=== PATIENT | female | born 1950 | race Caucasian/White ===

== ENCOUNTER 2017-07-15 15:18 | Observation (INO) | payer MEDICARE ==
--- NOTE | 2017-07-15 16:27 | RAD ---
PELVIS ONE VIEW: 07/15/17 HISTORY: Pelvic pain. Left sided weakness. COMPARISON: None. FINDINGS: There are four partially threaded cannulated screws at the left femoral neck. No evidence for hardwar e complication. Obturator rings are intact. No acute fracture or malalignment is appreciated. Mild degenerative disease of the SI joints. IMPRESSION: No acute abnormality. POS: CAMELIA
[2017-07-15] MEDS ORDERED: hydrALAZINE 20 MG/ML VIAL ONE (18:27)
[2017-07-15] MEDS ORDERED: Cyclobenzaprine 10 MG TAB PO PRN (18:54)
[2017-07-15 20:47] VITALS: BMI 20.7
[2017-07-15] MEDS: Heparin 5,000 UNITS/ML VIAL SC SCH (20:52)
[2017-07-15] MEDS ORDERED: Atorvastatin Calcium 40 MG TAB PO SCH (21:00)
[2017-07-15] MEDS: Acetaminophen 500 MG TAB PO PRN (23:36)
[2017-07-15] MEDS: hydrALAZINE 20 MG/ML VIAL SLOW IVP PRN (23:37)
[2017-07-16] MEDS: hydrALAZINE 20 MG/ML VIAL SLOW IVP PRN ×3 (03:30→23:10)
[2017-07-16] MEDS ORDERED: Labetalol 100 MG TAB PO SCH ×2 (05:15→10:15)
[2017-07-16] MEDS ORDERED: Amlodipine 10 MG TAB PO SCH ×2 (05:15→10:15)
[2017-07-16 05:28] LABS: Anion Gap 16 mmol/L (10-20); BUN (Urea Nitrogen) 22 mg/dL (9.8-20.1); Calc. Creatinine Clearance 38 mL/min (70-130); Calcium 10.4 mg/dL (7.8-10.44); Carbon Dioxide 26 mmol/L (23-31); Chloride 96 mmol/L (98-107); Estimated GFR-MDRD 42; Glucose 114 mg/dL (80-115); Potassium 3.5 mmol/L (3.5-5.1); Sodium 134 mmol/L (136-145)
[2017-07-16 05:44] LABS: Band 4 % (5-11); Eosinophils 3 % (0-10); Hemoglobin 12.9 g/dL (12.0-16.0); Lymphocytes 22 % (21-51); MDiff Complete? YES; Mean Corpuscular Hemoglobin 25.6 pg (27.0-31.0); Mean Corpuscular Volume 77.6 fl (81.0-99.0); Mean Platelet Volume 11.2 fL (7.4-10.4); Monocytes 4 % (0-10); Neutrophil 67 % (42-75); PLT Morphology Comment PLT clumps seen-ADEQ; Platelet Clumps MODERATE; Platelet Count 192 thou/uL (130-400); RBC Distribution Width 17.7 % (11.5-14.5); Red Blood Cell (RBC) Count 5.04 mill/uL (4.20-5.40); White Blood Cell (WBC) Count 8.2 thou/uL (4.8-10.8)
[2017-07-16] MEDS ORDERED: Nitroglycerin 0.4 MG TAB (25 Tab Bottle) SL PRN (09:22)
[2017-07-16] MEDS ORDERED: PROVENTIL INHALER 6.7 G (200 INHALATIONS) INH PRN (09:22)
[2017-07-16] MEDS: Heparin 5,000 UNITS/ML VIAL SC SCH ×3 (10:15→20:47)
[2017-07-16] MEDS ORDERED: Pramipexole Di-HCl 0.125 MG TAB PO SCH (10:15)
[2017-07-16] MEDS: Aspirin 81 mg Enteric Coated Tablet PO SCH (10:15)
--- NOTE | 2017-07-16 11:14 | HP ---
PRIMARY CARE PHYSICIAN: Dr. Queen, who is not in town. CHIEF COMPLAINT: Hip pain and foot pain for 1 week. HISTORY OF PRESENT ILLNESS: This is a 67-year-old female with a history of Parkinson's, hyperlipidem ia, hypertension, and restless leg syndrome, who presents with a chief complaint of 1-week history of hip and foot pain. The patient states that her PCP has been out of town and is currently in [facility]. She has not gone to see her PCP in regard to these week long complaints. The patient states she is not sure why her daughter dropped her off at the [place] [facility], but they sent her over to o facility for further evaluation and management. Patient herself has no acute complaints other than cramping in her feet bilaterally and she denies an y prior similar issues. REVIEW OF SYSTEMS: As per HPI. Constitutional: Denies any fevers or chills or recent weight loss o r gain. Reports a retained appetite. Cardiovascular: Denies any chest pressure or chest pain, any arm numbness or tingling or any episodes of diaphoresis. Respiratory: Denies any shortness of breat h, cough, or recent upper respiratory infection, sinusitis, or ear pain. Gastrointestinal: Denies a ny nausea or vomiting. Denies any abdominal pain. Denies any diarrhea or constipation. Genitourina ry: Denies any issues with dysuria, changes in urinary frequency, quality, color, or odor. Musculos keletal: As per above, otherwise no new myalgias or arthralgias. Skin: No new rashes or lymphadeno augusto. Remainder of review of systems otherwise negative. PAST MEDICAL HISTORY: As per above. 1. Hypertension. 2. Chronic obstructive pulmonary disease. 3. Hyperlipidemia. 4. History of coronary artery disease, status post CABG. 5. Parkinson's disease. 6. Congestive heart failure, status post dual-chamber pacemaker for having tachycardia. 7. Chronic renal disease. HOME MEDICATIONS: Please see the EMR for full details. Briefly, her list includes sertraline 1.5 ta bs p.o. daily, pramipexole 0.125 mg p.o. daily, labetalol 100 mg p.o. b.i.d., albuterol 90 mcg inhale d p.r.n., metoclopramide 10 mg p.o. t.i.d., risperidone 2 mg p.o. b.i.d., nitroglycerin 0.4 mg sublin gual p.r.n., isosorbide mononitrate 30 mg p.o. daily, ferrous sulfate 325 mg p.o. daily, amlodipine 1 0 mg p.o. daily, atorvastatin 10 mg p.o. daily, clonidine 0.5 mg patch. ALLERGIES: Include BENADRYL, ORANGE JUICE, and BAR SOAP. FAMILY HISTORY: The patient is unable to provide any family history at this point in time, but denie s any other family members with known Parkinson's or heart disease. SOCIAL HISTORY: The patient apparently currently resides with her daughter; previously was residing with her sister. The patient denies any alcohol, tobacco, or illicit drug use and states that she do es not want any chest compressions, shocks, or intubation and therefore a DO NOT RESUSCITATE, DO NOT INTUBATE. She indicates she wishes her daughter to be her medical decision maker if she is unable to make her own medical decisions. PHYSICAL EXAMINATION: GENERAL: The patient is awake. She is conversant. She responds slowly to questions, but responds a ppropriately. HEENT: Normocephalic, atraumatic. Slightly dry mucous membranes. Equal ocular motions are intact. No posterior oropharyngeal exudate or erythema noted. CARDIOVASCULAR: S1 and S2. No murmurs, rubs, or gallops. Pulses 2+ bilateral upper extremities. RESPIRATORY: Marginal air movement. No wheezes, rales, or rhonchi. Clear to auscultation bilateral ly. ABDOMEN: Positive bowel sounds, soft, nontender to palpation. MUSCULOSKELETAL: Trace to 1+ bilateral pitting pedal edema bilaterally. LABORATORY DATA AND IMAGING: WBC 8.1, hemoglobin 11.6, hematocrit 37.1, platelets 250. Sodium 140, potassium 4.1, chloride 102, bicarbonate 26, BUN 22, creatinine 1.43, glucose 115, calcium 10.0, tota l bilirubin 0.3, AST 14, ALT 12, alkaline phosphatase is 98. BNP 565. Total protein 7.0, albumin 3. 7, TSH 1.40. UA significant for protein greater than 300, trace blood, and 1+ urine bacteria. ASSESSMENT AND PLAN: A 67-year-old female, who is coming in for a 1-week history of bilateral hip an d feet cramping. 1. Bilateral hip and feet cramping without a significant change in her baseline mobility. It appear s the patient is mostly bedbound by her own decision at home. We will have physical therapy work wit h her, low-dose muscle relaxant if needed, and closely monitor. It does not appear that the patient' s creatinine of 1.43, without subsequent electrolyte abnormality in the setting of a known history of some chronic renal insufficiency, is likely the explanation for her presentation. There was concern for a urinary tract infection given the UA as described above. The patient does not have any leukoc ytosis. Does not have any fevers, chills, or urinary complaints. We will discontinue empiric ceftri axone for this urinalysis. If the patient clinically warrants further urine evaluation, we could cer tainly repeat a urinalysis. 2. Parkinson's, unclear staging. Unclear if she has a Parkinson's diagnosis or a parkinsonism-type spectrum disorder. The patient is recommended for an outpatient neurological evaluation, but first a physical therapy evaluation as well to determine her baseline and her current level of need, I will also consult case management. It appears that there is concern that the patient's family member, who dropped her off in the emergency department in [place] communicated to the staff there that she was unable to take care of the patient at home. DIET: As tolerated. ACTIVITY: As tolerated. See above. Deep venous thrombosis prophylaxis. The patient will be DNR/DNI. Admitted, observation status. Thank you for asking me to care for your patient. If questions or concerns, contact me at [facility].
[2017-07-16] MEDS: Metoclopramide HCl 10 MG TAB PO SCH ×2 (15:04→20:38)
[2017-07-16] MEDS: risperiDONE 1 MG TAB PO SCH (20:37)
[2017-07-16] MEDS: Labetalol 100 MG TAB PO SCH (20:37)
[2017-07-16] MEDS: Atorvastatin Calcium 10 MG TAB PO SCH (20:38)
[2017-07-16] MEDS ORDERED: Zolpidem Tartrate 5 MG TAB PO PRN (20:39)
--- NOTE | 2017-07-16 23:14 | PDOC.EVN ---
Event Note - Event Note Event Note: Pt was discharged but family felt uncomfortable taking her home. She is currently still in the hospital awaiting rehab approval for placement.
[2017-07-17] MEDS: Acetaminophen 500 MG TAB PO PRN (06:20)
[2017-07-17] MEDS: Ferrous Sulfate 325 MG TAB PO SCH (07:41)
[2017-07-17] MEDS: Amlodipine 10 MG TAB PO SCH (07:41)
[2017-07-17] MEDS: Heparin 5,000 UNITS/ML VIAL SC SCH ×3 (07:42→20:41)
[2017-07-17] MEDS: Aspirin 81 mg Enteric Coated Tablet PO SCH (07:42)
[2017-07-17] MEDS: Metoclopramide HCl 10 MG TAB PO SCH ×3 (07:43→20:41)
[2017-07-17] MEDS ORDERED: cloNIDine 0.3mg/24 Hour PATCH TD SCH (09:00)
[2017-07-17] MEDS ORDERED: Pramipexole Di-HCl 0.125 MG TAB PO SCH (09:00)
[2017-07-17] MEDS: risperiDONE 1 MG TAB PO SCH ×2 (09:46→20:41)
[2017-07-17] MEDS: Labetalol 100 MG TAB PO SCH ×2 (09:46→20:38)
[2017-07-17] MEDS: Pramipexole Di-HCl 0.125 MG TAB PO SCH (09:48)
[2017-07-17] MEDS: Atorvastatin Calcium 10 MG TAB PO SCH (20:41)
--- NOTE | 2017-07-17 22:10 | PDOC.PN ---
- Subjective Encounter Start Date: 07/17/17 Encounter Start Time: 15:00 Subjective: nsg notes rev, deepali ovn, no new issues - Objective Resuscitation Status: Resuscitation Status DNR:Do Not Resuscitate Vital Signs & Weight: Vital Signs (12 hours) Temp Pulse Resp BP BP Pulse Ox 07/17/17 20:38 75 187/97 H 07/17/17 20:00 98.5 F 75 18 187/97 H 95 07/17/17 16:20 99.1 F 68 18 154/78 H 94 L Weight Weight 122 lb 8 oz I&O: 07/16/17 07/17/17 07/18/17 06:59 06:59 06:59 Intake Total 981 610 Balance 981 610 Result Diagrams: 07/16/17 04:42 07/16/17 04:42 Dx/Plan - Plan * .
[2017-07-18] MEDS: Ferrous Sulfate 325 MG TAB PO SCH (07:49)
[2017-07-18] MEDS: Labetalol 100 MG TAB PO SCH (07:49)
[2017-07-18] MEDS: Amlodipine 10 MG TAB PO SCH (07:49)
[2017-07-18] MEDS: Metoclopramide HCl 10 MG TAB PO SCH ×2 (07:49→15:13)
[2017-07-18] MEDS: Aspirin 81 mg Enteric Coated Tablet PO SCH (07:50)
[2017-07-18] MEDS: risperiDONE 1 MG TAB PO SCH (07:50)
[2017-07-18] MEDS: Heparin 5,000 UNITS/ML VIAL SC SCH ×2 (07:51→15:13)
[2017-07-18] MEDS ORDERED: cloNIDine 0.3mg/24 Hour PATCH TD SCH (09:00)
[2017-07-18] MEDS: Pramipexole Di-HCl 0.125 MG TAB PO SCH (10:01)
[2017-07-18 15:49] VITALS: BP 127/68; TEMP 98.2
== END 2017-07-18 18:04 | disposition home or self-care (01) ==
LOC: ERS 15:18 → 2SW 17:48 → ONC 07-16 15:55
PROVIDERS: ADMIT Internal Medicine; ATTEND Internal Medicine
DX: M25.551 Pain in right hip (principal); M25.552 Pain in left hip; M79.671 Pain in right foot; M79.672 Pain in left foot; J44.9 Chronic obstructive pulmonary disease, unspecified; E78.5 Hyperlipidemia, unspecified; I25.10 Atherosclerotic heart disease of native coronary artery without angina pectoris; I13.0 Hypertensive heart and chronic kidney disease with heart failure and stage 1 through stage 4 chronic kidney disease, or unspecified chronic kidney disease; N18.9 Chronic kidney disease, unspecified; I50.9 Heart failure, unspecified; G20 Parkinson's disease; G25.81 Restless legs syndrome; Z88.8 Allergy status to other drugs, medicaments and biological substances; Z91.018 Allergy to other foods; Z91.048 Other nonmedicinal substance allergy status; Z79.82 Long term (current) use of aspirin; Z79.899 Other long term (current) drug therapy; Z95.0 Presence of cardiac pacemaker; Z86.73 Personal history of transient ischemic attack (TIA), and cerebral infarction without residual deficits; Z66 Do not resuscitate
CPT/HCPCS: 72170; 80048; 85025; 96374; 96376 ×3; 97116 ×2; 97139 ×3; 99285; 99406; G0378 ×2; G8978; G8979; G8987; G8988; 36415; J0360; J1644

== ENCOUNTER 2018-03-15 09:25 | Outpatient (CLI) | payer MEDICARE ==
--- NOTE | 2018-03-15 14:17 | ULT ---
RIGHT BREAST ULTRASOUND: Date: 03/15/18 HISTORY: Palpable abnormality of the 12 o'clock position of right breast. FINDINGS: Correlation made with mammograms from same date. Sonographic evaluation of the region of palpable concern at the 12 o'clock position demonstrates no e vidence of mass. IMPRESSION: BIRADS Category 2 - Benign findings. Return to annual mammographic screening. Further evaluation (including biopsy) should be based on clinical findings/suspicion. POS: OFF
--- NOTE | 2018-03-15 16:39 | BD ---
BONE DENSITOMETRY USING DEXA: Date: 03/15/18 HISTORY: Postmenopausal screening for osteoporosis. FINDINGS: Lumbar Spine: BMD (g/cm2) L1 0.717 T-Score: -2.5 Z-Score: -0.8 L2 0.651 T-Score: -3.4 Z-Score: -1.5 L3 0.583 T-Score: -4.6 Z-Score: -2.6 L4 0.519 T-Score: -4.9 Z-Score: -2.9 L1-L4 0.611 T-Score: -4.0 Z-Score: -2.0 Femoral Neck: 0.349 T-Score: -4.5 Z-Score: -2.9 Total Femur: 0.391 T-Score: -4.5 Z-Score: -3.2 IMPRESSION: Osteoporosis. POS: OFF
== END 2018-03-15 09:26 | disposition home or self-care (01) ==
LOC: BICMAMMO 09:25
PROVIDERS: ATTEND Family Medicine
DX: E89.40 Asymptomatic postprocedural ovarian failure (principal); N63.10 Unspecified lump in the right breast, unspecified quadrant; M81.0 Age-related osteoporosis without current pathological fracture; Z85.43 Personal history of malignant neoplasm of ovary
CPT/HCPCS: 76642; 77066; 77080; G0279

== ENCOUNTER 2022-08-20 10:56 | Outpatient (CLI) | payer MEDICARE, MEDICAID | END 2022-08-20 10:57 | disposition home or self-care (01) | LOC: BICCT 10:56 | PROVIDERS: ATTEND Internal Medicine Cardiovascular Disease | DX: I73.9 Peripheral vascular disease, unspecified (principal) | CPT/HCPCS: 82565 ==